=== PATIENT | male | born 1990 | race Caucasian/White ===

== ENCOUNTER 2021-06-29 09:13 | Emergency (ER) | payer OTHER ==
[~2021-06-29] VITALS: Ht 167.6 cm; Wt 85.0 kg
[2021-06-29 09:16] VITALS: BP 135/73
[2021-06-29] MEDS ORDERED: LEVETIRACETAM 1000MG PREMIX 100 ML IV ONE (10:00)
[2021-06-29 10:08] LABS: CLARITY URINE CLEAR (CLEAR); COLOR URINE YELLOW (YELLOW); KETONES URINE TRACE (NEGATIVE); LEUKOCYTE ESTERASE URINE NEGATIVE (NEGATIVE); NITRITE URINE NEGATIVE (NEGATIVE); OCCULT BLOOD URINE NEGATIVE (NEGATIVE); PROTEIN URINE TRACE (NEGATIVE); SPECIFIC GRAVITY URINE 1.023 (1.005-1.030); UROBILINOGEN URINE 0.2 E.U./dL (0.2-1.0)
[2021-06-29 10:22] LABS: BASOPHILS % 0.2 % (0.0-2.0); EOSINOPHILS % 1.3 % (0.0-5.0); HEMATOCRIT. 42.2 % (42.0-52.0); HEMOGLOBIN. 14.4 g/dL (14.0-18.0); LYMPHOCYTES % 17.9 % (20.0-50.0); MEAN CORPUSCULAR HEMOGLOBIN 31.9 pg (28.0-32.0); MEAN CORPUSCULAR VOLUME 93.2 fL (80.0-94.0); MEAN PLATELET VOLUME 7.7 fl (7.4-10.4); MONOCYTES % 14.4 % (2.0-8.0); NEUTROPHILS % 66.2 % (40.0-76.0); PLATELET 270 x1000/uL (130-400); RED BLOOD CELL COUNT 4.53 mill/uL (4.7-6.1); RED CELL DISTRIBUTION WIDTH 12.8 % (11.6-14.6)
[2021-06-29 10:26] LABS: CHLORIDE 103 mEq/L (98-107)
[2021-06-29 10:27] LABS: *AMPHETAMINES SCREEN URINE NEGATIVE (NEGATIVE); *BARBITURATES SCREEN URINE NEGATIVE (NEGATIVE); *BENZODIAZEPINES SCREEN URINE NEGATIVE (NEGATIVE); *COCAINE SCREEN URINE NEGATIVE (NEGATIVE); CANNABINOID URINE SCREEN NEGATIVE (NEGATIVE); METHADONE URINE SCREEN NEGATIVE (NEGATIVE); OPIATES URINE SCREEN NEGATIVE (NEGATIVE); PHENCYCLIDINE URINE SCREEN NEGATIVE (NEGATIVE)
[2021-06-29 10:32] LABS: ETHANOL BLOOD < 10 mg/dL
[2021-06-29] MEDS ORDERED: KEPP500 MT (11:01)
== END 2021-06-29 11:23 | disposition home or self-care (01) ==
LOC: ER 09:47
DX: R56.9 Unspecified convulsions (principal)
CPT/HCPCS: 36415; 70450; 80053; 80305; 80320; 81003; 85025; 96365; 99285; J1953; G0480

== ENCOUNTER 2022-03-25 23:01 | Emergency (ER) | payer SELFPAY ==
[~2022-03-25] VITALS: Ht 175.3 cm; Wt 80.0 kg
[~2022-03-25 23:01] MED LIST: KEPP500 MT
[2022-03-26] MEDS ORDERED: LEVETIRACETAM 1000MG PREMIX 100 ML IV ONE
[2022-03-26] MEDS ORDERED: LEVE500T19 MT (01:19)
[2022-03-26 01:36] VITALS: BP 134/77
== END 2022-03-26 01:44 | disposition home or self-care (01) ==
LOC: ER 23:01
DX: R56.9 Unspecified convulsions (principal)
CPT/HCPCS: 99284; J1953